=== PATIENT | male | born 1965 | race Hispanic/Latino ===

== ENCOUNTER → 2022-06-22 | Outpatient (CLI) | payer OTHER | END | disposition home or self-care (01) | LOC: EEVIPCON 09:00 → RAH 09:07 | PROVIDERS: ATTEND Family Medicine | DX: N20.0 Calculus of kidney (principal); N43.3 Hydrocele, unspecified; R30.0 Dysuria; N49.2 Inflammatory disorders of scrotum | CPT/HCPCS: 76770; 76870 ==